=== PATIENT | female | born 1950 | race Caucasian/White ===

== ENCOUNTER 2018-02-07 11:39 | Inpatient (IN) ==
[2018-02-07 16:26] LABS: Basophils % 0.4 % (0.0-0.8); Eosinophils # 0.1 10*3/uL (0.0-0.87); Eosinophils % 1.2 % (0.00-10.9); Hematocrit 36.8 VOL% (35.7-47.0); Hemoglobin 11.9 GM/DL (12.0-16.0); Immature Granulocytes % 0.6 %; Immature Granulocytes Absolute 0.06 #; Lymphocytes # 1.6 10*3/uL (1.4-4.0); Lymphocytes % 16.1 % (21.3-54.2); Mean Corpuscular HGB Conc 32.3 GM/DL (32-36); Mean Corpuscular Hemoglobin 29 PG (27-34); Mean Corpuscular Volume 90.4 FL (87-102); Monocytes # 0.7 10*3/uL (0.11-0.8); Monocytes % 7.6 % (1.7-12.7); Neutrophils # 7.2 10*3/uL (1.4-7.4); Neutrophils % 74.1 % (38.7-73.9); Platelet Count 206 T/CUMM (130-400); Red Blood Count 4.07 MC/CUMM (3.8-5.5); Red Cell Distribution Width 13.1 % (9.3-17.3); White Blood Count 9.7 T/CUMM (4-12)
[2018-02-07] MEDS ORDERED: ONDANSETRON 4 MG/2 ML VIAL IV PRN (16:37)
[2018-02-07] MEDS ORDERED: DEXTROSE 50% 25 GM/50 ML VIAL IV PRN (16:37)
[2018-02-07] MEDS ORDERED: GLUCAGON 1 MG VIAL IM PRN (16:37)
[2018-02-07 16:46] LABS: Albumin 2.8 G/DL (3.4-5.0); Bilirubin,Total 0.4 MG/DL (0.2-1.0); Calcium 7.4 MG/DL (8.5-10.1); Osmolality,Calculated 287.3 MOS/KG (273-304); Potassium 3.5 MMOL/L (3.5-5.1); Total Protein 6.3 G/DL (6.4-8.3)
[2018-02-07 20:54] LABS: Apearance,Urine CLEAR (Clear); Bilirubin,Urine Negative (Negative); Blood, Urine Small mg/dL (Negative); Glucose,Urine (UA) >=500 mg/dL (Negative); Ketones,Urine Negative (Negative); Mucus,Urine Occasional /LPF (Occasional); Nitrite,Urine Negative (Negative); Protein,Urine Negative; RBC,Urine <1 /HPF (0-4); Squamous Epithelial Cell,Urine Occasional /HPF (0-10); Urine Color Yellow (Yellow); Urine Specific Gravity 1.015 (1.001-1.035); WBC,Urine 1 /HPF (0-6)
[2018-02-07] MEDS ORDERED: INSULIN GLARGINE 100 UNIT/ML SUBCUT SCH (21:00)
[2018-02-07] MEDS: INSULIN LISPRO 100 UNIT/ML SUBCUT SCH (22:12)
[2018-02-08] MEDS: ALBUTEROL/IPRATROPIUM 3 ML NEB RESP TX SCH ×4 (00:32→19:35)
[2018-02-08] MEDS: ACETAMINOPHEN 325 MG TABLET PO PRN ×2 (05:59→20:11)
[2018-02-08 06:09] LABS: Basophils % 0.2 % (0.0-0.8); Eosinophils % 0.1 % (0.00-10.9); Hematocrit 40.7 VOL% (35.7-47.0); Hemoglobin 12.5 GM/DL (12.0-16.0); Immature Granulocytes % 0.6 %; Immature Granulocytes Absolute 0.08 #; Lymphocytes # 0.7 10*3/uL (1.4-4.0); Lymphocytes % 5.2 % (21.3-54.2); Mean Corpuscular HGB Conc 30.7 GM/DL (32-36); Mean Corpuscular Hemoglobin 28 PG (27-34); Mean Corpuscular Volume 91.9 FL (87-102); Mean Platelet Volume 11.6 FL (9.6-12.0); Monocytes % 6.8 % (1.7-12.7); Neutrophils # 12.5 10*3/uL (1.4-7.4); Neutrophils % 87.1 % (38.7-73.9); Platelet Count 238 T/CUMM (130-400); Red Blood Count 4.43 MC/CUMM (3.8-5.5); Red Cell Distribution Width 13.3 % (9.3-17.3); White Blood Count 14.4 T/CUMM (4-12)
[2018-02-08 06:46] LABS: Calcium 7.8 MG/DL (8.5-10.1); Osmolality,Calculated 288.3 MOS/KG (273-304); Potassium 3.5 MMOL/L (3.5-5.1); Risk Ratio 2.8
[2018-02-08] MEDS: INSULIN LISPRO 100 UNIT/ML SUBCUT SCH ×7 (07:19→20:13)
[2018-02-08] MEDS ORDERED: DIAZEPAM 5 MG TABLET PO ONE (10:33)
[2018-02-08] MEDS: ASPIRIN EC 325 MG TABLET PO SCH (11:34)
[2018-02-08] MEDS: PANTOPRAZOLE 40 MG TABLET PO SCH (11:34)
[2018-02-08] MEDS ORDERED: INSULIN GLARGINE 100 UNIT/ML SUBCUT SCH (14:13)
[2018-02-08] MEDS: cefTRIAXone 2,000 MG in SYRINGE 1 EACH IV SCH (18:47)
[2018-02-08] MEDS: AZITHROMYCIN INJ 500 MG in SODIUM CHLORIDE 0.9% 250 ML IV SCH (19:35)
[2018-02-08] MEDS: ENOXAPARIN 40 MG/0.4 ML SYRINGE SUBCUT SCH (20:15)
[2018-02-08] MEDS ORDERED: ASPIRIN EC 325 MG TABLET PO ONE (20:47)
[2018-02-08] MEDS ORDERED: ALBUTEROL/IPRATROPIUM 3 ML NEB RESP TX SCH (23:26)
[2018-02-09 05:24] LABS: Basophils # 0.1 10*3/uL (0.0-0.2); Basophils % 0.4 % (0.0-0.8); Eosinophils % 0.2 % (0.00-10.9); Hematocrit 37.7 VOL% (35.7-47.0); Immature Granulocytes % 0.6 %; Immature Granulocytes Absolute 0.08 #; Lymphocytes # 1.6 10*3/uL (1.4-4.0); Lymphocytes % 11.8 % (21.3-54.2); Mean Corpuscular HGB Conc 31.8 GM/DL (32-36); Mean Corpuscular Hemoglobin 29 PG (27-34); Mean Corpuscular Volume 91.1 FL (87-102); Mean Platelet Volume 12.1 FL (9.6-12.0); Monocytes # 1.2 10*3/uL (0.11-0.8); Monocytes % 9.1 % (1.7-12.7); Neutrophils # 10.4 10*3/uL (1.4-7.4); Neutrophils % 77.9 % (38.7-73.9); Platelet Count 238 T/CUMM (130-400); Red Blood Count 4.14 MC/CUMM (3.8-5.5); Red Cell Distribution Width 13.5 % (9.3-17.3); White Blood Count 13.3 T/CUMM (4-12)
[2018-02-09 05:56] LABS: Osmolality,Calculated 280.4 MOS/KG (273-304); Potassium 2.8 MMOL/L (3.5-5.1)
[2018-02-09] MEDS: ALBUTEROL/IPRATROPIUM 3 ML NEB RESP TX SCH ×4 (08:18→19:19)
[2018-02-09] MEDS ORDERED: POTASSIUM CHLORIDE 20 MEQ TABLET PO SCH (09:00)
[2018-02-09] MEDS: metFORMIN 500 MG TABLET PO SCH ×2 (09:16→20:01)
[2018-02-09] MEDS: FUROSEMIDE 40 MG/4 ML VIAL IV SCH (09:18)
[2018-02-09] MEDS: ASPIRIN EC 325 MG TABLET PO SCH (09:18)
[2018-02-09] MEDS: INSULIN LISPRO 100 UNIT/ML SUBCUT SCH ×7 (09:18→21:49)
[2018-02-09] MEDS: PANTOPRAZOLE 40 MG TABLET PO SCH (09:18)
[2018-02-09] MEDS: LISINOPRIL 5 MG TABLET PO SCH (09:20)
[2018-02-09] MEDS: PRAVASTATIN 40 MG TABLET PO SCH (09:20)
[2018-02-09] MEDS: cefTRIAXone 2,000 MG in SYRINGE 1 EACH IV SCH (20:01)
[2018-02-09] MEDS: POTASSIUM CHLORIDE RIDER 10 MEQ in PREMIX 1 EACH IV SCH ×3 (20:04→22:54)
[2018-02-09] MEDS: INSULIN GLARGINE 100 UNIT/ML SUBCUT SCH (21:47)
[2018-02-09] MEDS: ENOXAPARIN 40 MG/0.4 ML SYRINGE SUBCUT SCH (21:47)
[2018-02-09] MEDS: POTASSIUM CHLORIDE 20 MEQ TABLET PO SCH (21:48)
[2018-02-10] MEDS: ALBUTEROL/IPRATROPIUM 3 ML NEB RESP TX SCH ×4 (00:09→19:20)
[2018-02-10] MEDS: AZITHROMYCIN INJ 500 MG in SODIUM CHLORIDE 0.9% 250 ML IV SCH ×2 (00:11→21:30)
[2018-02-10 05:43] LABS: Basophils # 0.1 10*3/uL (0.0-0.2); Basophils % 0.5 % (0.0-0.8); Eosinophils # 0.2 10*3/uL (0.0-0.87); Eosinophils % 1.6 % (0.00-10.9); Immature Granulocytes % 0.7 %; Immature Granulocytes Absolute 0.08 #; Lymphocytes # 1.4 10*3/uL (1.4-4.0); Lymphocytes % 11.4 % (21.3-54.2); Mean Corpuscular HGB Conc 31.4 GM/DL (32-36); Mean Corpuscular Hemoglobin 28 PG (27-34); Mean Corpuscular Volume 90.2 FL (87-102); Monocytes # 1.3 10*3/uL (0.11-0.8); Monocytes % 10.3 % (1.7-12.7); Neutrophils # 9.2 10*3/uL (1.4-7.4); Neutrophils % 75.5 % (38.7-73.9); Platelet Count 213 T/CUMM (130-400); Red Blood Count 3.88 MC/CUMM (3.8-5.5); Red Cell Distribution Width 13.7 % (9.3-17.3); White Blood Count 12.2 T/CUMM (4-12)
[2018-02-10 05:58] LABS: Osmolality,Calculated 280.3 MOS/KG (273-304); Potassium 3.4 MMOL/L (3.5-5.1)
[2018-02-10] MEDS: metFORMIN 500 MG TABLET PO SCH ×2 (09:04→18:33)
[2018-02-10] MEDS: LISINOPRIL 5 MG TABLET PO SCH (09:05)
[2018-02-10] MEDS: PANTOPRAZOLE 40 MG TABLET PO SCH (09:05)
[2018-02-10] MEDS: POTASSIUM CHLORIDE 20 MEQ TABLET PO SCH ×2 (09:05→21:23)
[2018-02-10] MEDS: INSULIN LISPRO 100 UNIT/ML SUBCUT SCH ×7 (09:06→21:28)
[2018-02-10] MEDS: FUROSEMIDE 40 MG/4 ML VIAL IV SCH (09:07)
[2018-02-10] MEDS: ASPIRIN EC 325 MG TABLET PO SCH (09:09)
[2018-02-10] MEDS: PRAVASTATIN 40 MG TABLET PO SCH (09:09)
[2018-02-10] MEDS: ACETAMINOPHEN 325 MG TABLET PO PRN (12:10)
[2018-02-10] MEDS: MEROPENEM 1,000 MG in SODIUM CHLORIDE 0.9% 100 ML IV SCH ×2 (12:11→18:34)
[2018-02-10] MEDS: ENOXAPARIN 40 MG/0.4 ML SYRINGE SUBCUT SCH (21:23)
[2018-02-10] MEDS: INSULIN GLARGINE 100 UNIT/ML SUBCUT SCH (21:29)
[2018-02-11] MEDS: ALBUTEROL/IPRATROPIUM 3 ML NEB RESP TX SCH ×4 (01:03→19:03)
[2018-02-11] MEDS: MEROPENEM 1,000 MG in SODIUM CHLORIDE 0.9% 100 ML IV SCH ×3 (01:31→17:28)
[2018-02-11 04:48] LABS: Basophils % 0.4 % (0.0-0.8); Eosinophils # 0.4 10*3/uL (0.0-0.87); Eosinophils % 3.4 % (0.00-10.9); Hematocrit 38.4 VOL% (35.7-47.0); Hemoglobin 11.7 GM/DL (12.0-16.0); Immature Granulocytes % 0.6 %; Immature Granulocytes Absolute 0.06 #; Lymphocytes # 1.3 10*3/uL (1.4-4.0); Mean Corpuscular HGB Conc 30.5 GM/DL (32-36); Mean Corpuscular Hemoglobin 28 PG (27-34); Mean Corpuscular Volume 92.5 FL (87-102); Mean Platelet Volume 11.8 FL (9.6-12.0); Monocytes # 0.8 10*3/uL (0.11-0.8); Monocytes % 7.4 % (1.7-12.7); Neutrophils % 76.2 % (38.7-73.9); Platelet Count 241 T/CUMM (130-400); Red Blood Count 4.15 MC/CUMM (3.8-5.5); White Blood Count 10.5 T/CUMM (4-12)
[2018-02-11 05:12] LABS: Calcium 8.2 MG/DL (8.5-10.1); Ferritin 157.6 ng/ml (8-252); Osmolality,Calculated 283.3 MOS/KG (273-304); Potassium 4.2 MMOL/L (3.5-5.1)
[2018-02-11 05:18] LABS: Free T4 (Free Thyroxine) 1.38 NG/DL (0.76-1.46); Thyroid Stimulating Hormone 1.33 uIU/ml (0.358-3.74)
[2018-02-11 05:28] LABS: Folate 8.3 NG/ML (5.4-24.0); Vitamin B12 260 PG/ML (211-911)
[2018-02-11] MEDS: ACETAMINOPHEN 325 MG TABLET PO PRN ×2 (06:05→12:42)
[2018-02-11 06:38] LABS: Sedimentation Rate-Westergren 72 MM/HR (0-30)
[2018-02-11] MEDS: INSULIN LISPRO 100 UNIT/ML SUBCUT SCH ×7 (09:15→21:00)
[2018-02-11] MEDS: PRAVASTATIN 40 MG TABLET PO SCH (09:23)
[2018-02-11] MEDS: ASPIRIN EC 325 MG TABLET PO SCH (09:23)
[2018-02-11] MEDS: POTASSIUM CHLORIDE 20 MEQ TABLET PO SCH ×2 (09:23→21:29)
[2018-02-11] MEDS: PANTOPRAZOLE 40 MG TABLET PO SCH (09:23)
[2018-02-11] MEDS: LISINOPRIL 5 MG TABLET PO SCH (09:24)
[2018-02-11] MEDS: FUROSEMIDE 40 MG/4 ML VIAL IV SCH (09:40)
[2018-02-11] MEDS ORDERED: ERGOCALCIFEROL 50,000 UNIT CAPSULE PO SCH (10:30)
[2018-02-11] MEDS ORDERED: CYANOCOBALAMIN 1000 MCG/1 ML VIAL IM SCH (10:30)
[2018-02-11 10:45] LABS: Hemoglobin A1 (Alkaline) 97.6 % (96.5-98.5); Hemoglobin A2 (Alkaline) 2.4 % (1.5-3.5)
[2018-02-11 12:40] LABS: ABG Base Excess 2.2 MMOL/L (-2.5-2.5); ABG HCO3 26.3 MMOL/L (20-26); ABG Oxygen Saturation 99.4 % (95-100); ABG PCO2 39.4 MM HG (35-48); ABG PH 7.435 (7.35-7.45); Allen Test Positive
[2018-02-11] MEDS: CHOLECALCIFEROL 1,000 UNIT TABLET PO SCH (12:42)
[2018-02-11] MEDS: FOLIC ACID 1 MG TABLET PO SCH (12:43)
[2018-02-11] MEDS: ENOXAPARIN 40 MG/0.4 ML SYRINGE SUBCUT SCH (21:29)
[2018-02-11] MEDS: INSULIN GLARGINE 100 UNIT/ML SUBCUT SCH (21:29)
[2018-02-11] MEDS: AZITHROMYCIN INJ 500 MG in SODIUM CHLORIDE 0.9% 250 ML IV SCH (21:35)
[2018-02-12] MEDS: ALBUTEROL/IPRATROPIUM 3 ML NEB RESP TX SCH ×4 (01:27→19:55)
[2018-02-12] MEDS: MEROPENEM 1,000 MG in SODIUM CHLORIDE 0.9% 100 ML IV SCH ×3 (01:47→17:27)
[2018-02-12 05:16] LABS: Basophils # 0.1 10*3/uL (0.0-0.2); Basophils % 0.5 % (0.0-0.8); Eosinophils # 0.5 10*3/uL (0.0-0.87); Eosinophils % 5.2 % (0.00-10.9); Hematocrit 35.8 VOL% (35.7-47.0); Hemoglobin 11.2 GM/DL (12.0-16.0); Immature Granulocytes % 0.4 %; Immature Granulocytes Absolute 0.04 #; Lymphocytes # 1.1 10*3/uL (1.4-4.0); Lymphocytes % 10.9 % (21.3-54.2); Mean Corpuscular HGB Conc 31.3 GM/DL (32-36); Mean Corpuscular Hemoglobin 28 PG (27-34); Mean Corpuscular Volume 90.6 FL (87-102); Mean Platelet Volume 11.7 FL (9.6-12.0); Monocytes # 0.9 10*3/uL (0.11-0.8); Monocytes % 8.3 % (1.7-12.7); Neutrophils # 7.6 10*3/uL (1.4-7.4); Neutrophils % 74.7 % (38.7-73.9); Platelet Count 249 T/CUMM (130-400); Red Blood Count 3.95 MC/CUMM (3.8-5.5); White Blood Count 10.2 T/CUMM (4-12)
[2018-02-12 05:47] LABS: Calcium 8.8 MG/DL (8.5-10.1); Osmolality,Calculated 286.4 MOS/KG (273-304); Potassium 4.7 MMOL/L (3.5-5.1)
[2018-02-12] MEDS: ACETAMINOPHEN 325 MG TABLET PO PRN ×3 (06:30→18:14)
[2018-02-12] MEDS: ASPIRIN EC 325 MG TABLET PO SCH (09:07)
[2018-02-12] MEDS: PANTOPRAZOLE 40 MG TABLET PO SCH (09:07)
[2018-02-12] MEDS: FOLIC ACID 1 MG TABLET PO SCH (09:07)
[2018-02-12] MEDS: CHOLECALCIFEROL 1,000 UNIT TABLET PO SCH (09:07)
[2018-02-12] MEDS: POTASSIUM CHLORIDE 20 MEQ TABLET PO SCH (09:07)
[2018-02-12] MEDS: LISINOPRIL 5 MG TABLET PO SCH (09:08)
[2018-02-12] MEDS: INSULIN LISPRO 100 UNIT/ML SUBCUT SCH ×7 (09:08→20:35)
[2018-02-12] MEDS: FUROSEMIDE 40 MG/4 ML VIAL IV SCH (09:08)
[2018-02-12] MEDS: PRAVASTATIN 40 MG TABLET PO SCH (09:08)
[2018-02-12] MEDS: INSULIN GLARGINE 100 UNIT/ML SUBCUT SCH (20:35)
[2018-02-12] MEDS: ENOXAPARIN 40 MG/0.4 ML SYRINGE SUBCUT SCH (20:35)
[2018-02-12] MEDS: AZITHROMYCIN INJ 500 MG in SODIUM CHLORIDE 0.9% 250 ML IV SCH (20:38)
[2018-02-13] MEDS: ALBUTEROL/IPRATROPIUM 3 ML NEB RESP TX SCH ×4 (01:11→20:04)
[2018-02-13] MEDS: MEROPENEM 1,000 MG in SODIUM CHLORIDE 0.9% 100 ML IV SCH ×3 (01:58→17:26)
[2018-02-13] MEDS: ACETAMINOPHEN 325 MG TABLET PO PRN ×2 (02:01→21:50)
[2018-02-13] MEDS: PRAVASTATIN 40 MG TABLET PO SCH (08:28)
[2018-02-13] MEDS: PANTOPRAZOLE 40 MG TABLET PO SCH (08:28)
[2018-02-13] MEDS: CHOLECALCIFEROL 1,000 UNIT TABLET PO SCH (08:28)
[2018-02-13] MEDS: FUROSEMIDE 20 MG TABLET PO SCH (08:29)
[2018-02-13] MEDS: FOLIC ACID 1 MG TABLET PO SCH (08:29)
[2018-02-13] MEDS: LISINOPRIL 5 MG TABLET PO SCH (08:29)
[2018-02-13] MEDS: POTASSIUM CHLORIDE 20 MEQ TABLET PO SCH (08:30)
[2018-02-13] MEDS: ASPIRIN EC 325 MG TABLET PO SCH (08:30)
[2018-02-13] MEDS: INSULIN LISPRO 100 UNIT/ML SUBCUT SCH ×7 (08:31→20:48)
[2018-02-13] MEDS ORDERED: INSULIN GLARGINE 100 UNIT/ML SUBCUT SCH (15:40)
[2018-02-13] MEDS: AZITHROMYCIN INJ 500 MG in SODIUM CHLORIDE 0.9% 250 ML IV SCH (20:46)
[2018-02-13] MEDS: ENOXAPARIN 40 MG/0.4 ML SYRINGE SUBCUT SCH (20:48)
[2018-02-14] MEDS: ALBUTEROL/IPRATROPIUM 3 ML NEB RESP TX SCH ×2 (00:28→07:36)
[2018-02-14] MEDS: MEROPENEM 1,000 MG in SODIUM CHLORIDE 0.9% 100 ML IV SCH ×2 (02:03→09:25)
[2018-02-14 05:30] LABS: Calcium 9.1 MG/DL (8.5-10.1); Osmolality,Calculated 278.5 MOS/KG (273-304); Potassium 4.3 MMOL/L (3.5-5.1)
[2018-02-14 08:12] VITALS: BP 109/62
[2018-02-14] MEDS: POTASSIUM CHLORIDE 20 MEQ TABLET PO SCH (09:22)
[2018-02-14] MEDS: ASPIRIN EC 325 MG TABLET PO SCH (09:22)
[2018-02-14] MEDS: LISINOPRIL 5 MG TABLET PO SCH (09:22)
[2018-02-14] MEDS: CHOLECALCIFEROL 1,000 UNIT TABLET PO SCH (09:22)
[2018-02-14] MEDS: metFORMIN 500 MG TABLET PO SCH (09:23)
[2018-02-14] MEDS: FUROSEMIDE 20 MG TABLET PO SCH (09:23)
[2018-02-14] MEDS: PANTOPRAZOLE 40 MG TABLET PO SCH (09:23)
[2018-02-14] MEDS: FOLIC ACID 1 MG TABLET PO SCH (09:23)
[2018-02-14] MEDS: INSULIN LISPRO 100 UNIT/ML SUBCUT SCH ×2 (09:23→09:24)
[2018-02-14] MEDS: PRAVASTATIN 40 MG TABLET PO SCH (09:23)
== END 2018-02-14 11:20 | disposition swing bed (61) | DRG 64 ==
LOC: SUATTDRO 15:02 → N.4E 15:02
PROVIDERS: ADMIT Internal Medicine; ATTEND Hospitalist

== ENCOUNTER 2020-07-15 09:08 | Inpatient (IN) ==
[2020-07-15] MEDS ORDERED: ALBUTEROL 2.5 MG/3 ML NEB RESP TX PRN (10:55)
[2020-07-15] MEDS ORDERED: ONDANSETRON 4 MG/2 ML VIAL IV PRN (10:55)
[2020-07-15] MEDS ORDERED: ENOXAPARIN 30 MG/0.3 ML SYRINGE SUBCUT SCH (11:00)
[2020-07-15] MEDS ORDERED: LACTATED RINGERS 500 ML IV ONE ×2 (11:04→13:44)
[2020-07-15] MEDS: PHENYLEPHRINE DRIP 40 MG/250 ML PREMIX IV PRN (11:14)
[2020-07-15] MEDS ORDERED: GLUCAGON 1 MG VIAL IM PRN ×2 (11:15→13:52)
[2020-07-15] MEDS ORDERED: DEXTROSE 50% 25 GM/50 ML VIAL IV PRN ×2 (11:15→13:52)
[2020-07-15] MEDS: LEVOFLOXACIN INJ 500 MG in PREMIX 1 EACH IV SCH (11:30)
[2020-07-15 11:49] LABS: Hematocrit 35.9 VOL% (35.7-47.0); Immature Granulocytes % 1.7 %; Immature Granulocytes Absolute 0.12 #; Lactic Acid 2.1 MMOL/L (0.4-2.0); Lymphocytes # 0.4 10*3/uL (1.4-4.0); Lymphocytes % 6.2 % (21.3-54.2); Mean Corpuscular HGB Conc 27.9 GM/DL (32-36); Mean Corpuscular Volume 96.5 FL (87-102); Mean Platelet Volume 11.4 FL (9.6-12.0); Monocytes % 4.7 % (1.7-12.7); NRBC # 0.03 10*3/uL; Neutrophils % 87.4 % (38.7-73.9); Platelet Count 261 T/CUMM (130-400); Red Blood Count 3.72 MC/CUMM (3.8-5.5); Red Cell Distribution Width 16.2 % (9.3-17.3)
[2020-07-15 11:49] LABS: ABG HCO3 30.9 MMOL/L (20-26); ABG PCO2 50.8 MM HG (35-48); ABG PH 7.417 (7.35-7.45); ABG TCO2 29.8 MMOL/L (23-27); Pt O2 Delivery Device Ventilator
[2020-07-15 11:55] LABS: Alanine Aminotransferase 9 U/L (13-56); Albumin 2.7 G/DL (3.4-5.0); Alkaline Phosphatase 95 U/L (45-117); Aspartate Amino Transferase 19 U/L (0-37); Blood Urea Nitrogen 33 MG/DL (7-18); Calcium 8.5 MG/DL (8.5-10.1); Carbon Dioxide 33 MMOL/L (21-32); Estimated Glom Filtration Rate 44 ML/MIN; Glucose 230 MG/DL (74-106); Osmolality,Calculated 271.9 MOS/KG (273-304); Potassium 4.6 MMOL/L (3.5-5.1); Sodium 129 MMOL/L (136-145); Total Protein 8.3 G/DL (6.4-8.2)
[2020-07-15] MEDS: LACTATED RINGERS 1,000 ML IV SCH ×2 (12:03→20:22)
[2020-07-15] MEDS: PANTOPRAZOLE 40 MG VIAL IV SCH (12:13)
[2020-07-15] MEDS: MEROPENEM 500 MG in SODIUM CHLORIDE 0.9% 100 ML IV SCH ×3 (12:13→22:41)
[2020-07-15 12:53] LABS: Bacteria,Urine Moderate /HPF (Few); Bilirubin,Urine Negative (Negative); Blood, Urine Large mg/dL (Negative); Glucose,Urine (UA) Negative (Negative); Hyaline Casts,Urine 57 /LPF (0-3); Ketones,Urine Negative (Negative); Mucus,Urine Occasional /LPF (Occasional); Nitrite,Urine Negative (Negative); Protein,Urine 100 MG/DL; RBC,Urine 219 /HPF (0-4); Squamous Epithelial Cell,Urine Occasional /HPF (0-10); Urine Appearance CLOUDY (Clear); Urine Color Amber (Yellow); Urine Specific Gravity 1.019 (1.001-1.035); WBC,Urine 204 /HPF (0-6)
[2020-07-15] MEDS: INSULIN LISPRO 100 UNIT/ML SUBCUT SCH ×3 (13:06→23:38)
[2020-07-15] MEDS: MIDAZOLAM 100 MG in SODIUM CHLORIDE 0.9% 80 ML IV PRN (15:18)
[2020-07-16 03:21] LABS: ABG Base Excess 9.4 MMOL/L (-2.5-2.5); ABG HCO3 32.5 MMOL/L (20-26); ABG Oxygen Saturation 97.7 % (95-100); ABG PCO2 38.1 MM HG (35-48); ABG PH 7.549 (7.35-7.45); ABG PO2 88.9 MM HG (80-95); ABG TCO2 33.7 MMOL/L (23-27)
[2020-07-16 05:38] LABS: Basophils % 0.1 % (0.0-0.8); Hematocrit 33.9 VOL% (35.7-47.0); Hemoglobin 10.2 GM/DL (12.0-16.0); Immature Granulocytes % 0.9 %; Immature Granulocytes Absolute 0.07 #; Lymphocytes # 0.3 10*3/uL (1.4-4.0); Lymphocytes % 4.1 % (21.3-54.2); Mean Corpuscular HGB Conc 30.1 GM/DL (32-36); Mean Corpuscular Volume 89.2 FL (87-102); Mean Platelet Volume 11.6 FL (9.6-12.0); Monocytes % 12.2 % (1.7-12.7); NRBC # 0.03 10*3/uL; Neutrophils % 82.7 % (38.7-73.9); Platelet Count 254 T/CUMM (130-400); Red Cell Distribution Width 16.9 % (9.3-17.3); White Blood Count 7.6 T/CUMM (4-12)
[2020-07-16] MEDS: INSULIN LISPRO 100 UNIT/ML SUBCUT SCH ×3 (05:50→18:04)
[2020-07-16] MEDS: MEROPENEM 500 MG in SODIUM CHLORIDE 0.9% 100 ML IV SCH ×3 (05:50→18:10)
[2020-07-16 06:04] LABS: Albumin 2.5 G/DL (3.4-5.0); Bilirubin,Total 1.7 MG/DL (0.2-1.0); Calcium 8.6 MG/DL (8.5-10.1); Osmolality,Calculated 284.5 MOS/KG (273-304); Total Protein 7.5 G/DL (6.4-8.2)
[2020-07-16 06:34] LABS: Lymphocytes 2 % (20-55); Segmented Neutrophils 94 % (50-85); Total Cells Counted 100
[2020-07-16 06:35] LABS: Hypochromasia Slight; Platelet Estimate Normal; Polychromasia Slight
[2020-07-16] MEDS: LACTATED RINGERS 1,000 ML IV SCH (08:08)
[2020-07-16] MEDS: MIDAZOLAM 100 MG in SODIUM CHLORIDE 0.9% 80 ML IV PRN (08:50)
[2020-07-16] MEDS ORDERED: ENOXAPARIN 40 MG/0.4 ML SYRINGE SUBCUT SCH (11:00)
[2020-07-16] MEDS: PANTOPRAZOLE 40 MG VIAL IV SCH (12:55)
[2020-07-16] MEDS: INSULIN GLARGINE 100 UNIT/ML SUBCUT SCH (12:57)
[2020-07-16] MEDS: LEVOFLOXACIN INJ 500 MG in PREMIX 1 EACH IV SCH (12:57)
[2020-07-16] MEDS: PHENYLEPHRINE DRIP 40 MG/250 ML PREMIX IV PRN (13:00)
[2020-07-17] MEDS: INSULIN LISPRO 100 UNIT/ML SUBCUT SCH ×4 (00:10→18:15)
[2020-07-17] MEDS: MEROPENEM 500 MG in SODIUM CHLORIDE 0.9% 100 ML IV SCH ×4 (00:10→20:51)
[2020-07-17] MEDS: LACTATED RINGERS 1,000 ML IV SCH ×4 (00:11→22:01)
[2020-07-17] MEDS: MIDAZOLAM 100 MG in SODIUM CHLORIDE 0.9% 80 ML IV PRN (01:08)
[2020-07-17 03:50] LABS: ABG Base Excess 11.2 MMOL/L (-2.5-2.5); ABG HCO3 34.5 MMOL/L (20-26); ABG Oxygen Saturation 98.7 % (95-100); ABG PH 7.553 (7.35-7.45); ABG PO2 124.5 MM HG (80-95); ABG TCO2 35.7 MMOL/L (23-27)
[2020-07-17 04:20] LABS: Hematocrit 28.5 VOL% (35.7-47.0); Immature Granulocytes % 0.4 %; Immature Granulocytes Absolute 0.04 #; Lymphocytes # 0.6 10*3/uL (1.4-4.0); Lymphocytes % 5.8 % (21.3-54.2); Mean Corpuscular HGB Conc 31.6 GM/DL (32-36); Mean Corpuscular Volume 86.9 FL (87-102); Mean Platelet Volume 11.2 FL (9.6-12.0); Monocytes % 16.3 % (1.7-12.7); Neutrophils % 77.5 % (38.7-73.9); Platelet Count 217 T/CUMM (130-400); Red Blood Count 3.28 MC/CUMM (3.8-5.5); Red Cell Distribution Width 17.7 % (9.3-17.3); White Blood Count 9.8 T/CUMM (4-12)
[2020-07-17 04:38] LABS: Albumin 2.2 G/DL (3.4-5.0); Calcium 8.2 MG/DL (8.5-10.1); Osmolality,Calculated 295.2 MOS/KG (273-304); Potassium 4.2 MMOL/L (3.5-5.1); Total Protein 6.7 G/DL (6.4-8.2)
[2020-07-17 05:15] LABS: Lymphocytes 10 % (20-55); Segmented Neutrophils 76 % (50-85); Total Cells Counted 100
[2020-07-17 05:16] LABS: Hypochromasia 2+; Macrocytosis 1+; Platelet Estimate Normal
[2020-07-17 05:17] LABS: Anisocytosis 1+; Polychromasia Few
[2020-07-17] MEDS ORDERED: FUROSEMIDE 20 MG/2 ML VIAL IV ONE (08:15)
[2020-07-17] MEDS ORDERED: FUROSEMIDE 40 MG/4 ML VIAL IV ONE (08:56)
[2020-07-17] MEDS: INSULIN GLARGINE 100 UNIT/ML SUBCUT SCH (08:57)
[2020-07-17] MEDS ORDERED: INSULIN GLARGINE 100 UNIT/ML SUBCUT ONE (10:59)
[2020-07-17 11:44] LABS: ABG HCO3 34.8 MMOL/L (20-26); ABG Oxygen Saturation 99.4 % (95-100); ABG PH 7.413 (7.35-7.45); ABG TCO2 34.3 MMOL/L (23-27)
[2020-07-17] MEDS: PANTOPRAZOLE 40 MG VIAL IV SCH (12:16)
[2020-07-17] MEDS: ENOXAPARIN 30 MG/0.3 ML SYRINGE SUBCUT SCH (12:26)
[2020-07-17] MEDS: LEVOFLOXACIN INJ 500 MG in PREMIX 1 EACH IV SCH (12:29)
[2020-07-17] MEDS: MORPHINE 4 MG/1 ML VIAL IV PRN (20:52)
[2020-07-18] MEDS: INSULIN LISPRO 100 UNIT/ML SUBCUT SCH ×7 (00:22→23:55)
[2020-07-18 04:15] LABS: ABG Base Excess 10.5 MMOL/L (-2.5-2.5); ABG HCO3 33.7 MMOL/L (20-26); ABG Oxygen Saturation 98.8 % (95-100); ABG PH 7.554 (7.35-7.45); ABG PO2 137.2 MM HG (80-95); ABG TCO2 34.9 MMOL/L (23-27)
[2020-07-18] MEDS: MEROPENEM 500 MG in SODIUM CHLORIDE 0.9% 100 ML IV SCH (04:34)
[2020-07-18 04:58] LABS: Basophils % 0.1 % (0.0-0.8); Eosinophils # 0.1 10*3/uL (0.0-0.87); Eosinophils % 0.5 % (0.00-10.9); Hematocrit 29.7 VOL% (35.7-47.0); Hemoglobin 9.3 GM/DL (12.0-16.0); Immature Granulocytes % 0.5 %; Immature Granulocytes Absolute 0.07 #; Lymphocytes # 0.8 10*3/uL (1.4-4.0); Lymphocytes % 6.2 % (21.3-54.2); Mean Corpuscular HGB Conc 31.3 GM/DL (32-36); Mean Corpuscular Volume 86.8 FL (87-102); Mean Platelet Volume 11.7 FL (9.6-12.0); Monocytes % 13.9 % (1.7-12.7); Neutrophils % 78.8 % (38.7-73.9); Platelet Count 215 T/CUMM (130-400); Red Blood Count 3.42 MC/CUMM (3.8-5.5); Red Cell Distribution Width 18.1 % (9.3-17.3); White Blood Count 12.8 T/CUMM (4-12)
[2020-07-18 05:30] LABS: Calcium 8.3 MG/DL (8.5-10.1); Osmolality,Calculated 300.8 MOS/KG (273-304); Potassium 3.9 MMOL/L (3.5-5.1)
[2020-07-18] MEDS: MORPHINE 4 MG/1 ML VIAL IV PRN (08:19)
[2020-07-18] MEDS ORDERED: INSULIN GLARGINE 100 UNIT/ML SUBCUT ONE (09:00)
[2020-07-18] MEDS ORDERED: INSULIN GLARGINE 100 UNIT/ML SUBCUT SCH (09:00)
[2020-07-18] MEDS ORDERED: INSULIN LISPRO 100 UNIT/ML ONE (09:17)
[2020-07-18] MEDS: FUROSEMIDE 40 MG/4 ML VIAL IV SCH ×2 (09:19→20:54)
[2020-07-18] MEDS: PANTOPRAZOLE 40 MG VIAL IV SCH (11:11)
[2020-07-18] MEDS: LEVOFLOXACIN INJ 500 MG in PREMIX 1 EACH IV SCH (11:16)
[2020-07-18] MEDS: ENOXAPARIN 30 MG/0.3 ML SYRINGE SUBCUT SCH (11:17)
[2020-07-18] MEDS: DEXMEDETOMIDINE 200 MCG in SODIUM CHLORIDE 0.9% 48 ML IV PRN ×2 (11:33→16:33)
[2020-07-18] MEDS: AMITRIPTYLINE 25 MG TABLET PO SCH (20:56)
[2020-07-19] MEDS: DEXMEDETOMIDINE 200 MCG in SODIUM CHLORIDE 0.9% 48 ML IV PRN (02:29)
[2020-07-19 04:05] LABS: ABG Base Excess 14.4 MMOL/L (-2.5-2.5); ABG HCO3 38.3 MMOL/L (20-26); ABG Oxygen Saturation 99.7 % (95-100); ABG PCO2 39.8 MM HG (35-48); ABG PH 7.586 (7.35-7.45); ABG TCO2 34.3 MMOL/L (23-27); Allen Test Positive; Pt O2 Delivery Device Ventilator
[2020-07-19] MEDS: INSULIN LISPRO 100 UNIT/ML SUBCUT SCH ×5 (05:07→20:50)
[2020-07-19 06:46] LABS: Basophils % 0.1 % (0.0-0.8); Eosinophils # 0.4 10*3/uL (0.0-0.87); Eosinophils % 2.2 % (0.00-10.9); Hematocrit 31.4 VOL% (35.7-47.0); Hemoglobin 9.7 GM/DL (12.0-16.0); Immature Granulocytes % 0.7 %; Immature Granulocytes Absolute 0.11 #; Lymphocytes # 0.7 10*3/uL (1.4-4.0); Mean Corpuscular HGB Conc 30.9 GM/DL (32-36); Mean Platelet Volume 11.3 FL (9.6-12.0); Monocytes % 9.9 % (1.7-12.7); Neutrophils % 83.1 % (38.7-73.9); Platelet Count 200 T/CUMM (130-400); Red Blood Count 3.57 MC/CUMM (3.8-5.5); Red Cell Distribution Width 18.2 % (9.3-17.3); White Blood Count 16.6 T/CUMM (4-12)
[2020-07-19 07:05] LABS: Calcium 8.6 MG/DL (8.5-10.1); Osmolality,Calculated 301.4 MOS/KG (273-304); Potassium 4.3 MMOL/L (3.5-5.1)
[2020-07-19 07:06] LABS: Eosinophils 1 % (0-10); Lymphocytes 1 % (20-55); Segmented Neutrophils 90 % (50-85); Total Cells Counted 100
[2020-07-19 07:07] LABS: Hypochromasia 1+; Microcytosis 1+; Platelet Estimate Adequate
[2020-07-19] MEDS: INSULIN GLARGINE 100 UNIT/ML SUBCUT SCH (08:15)
[2020-07-19] MEDS: MORPHINE 4 MG/1 ML VIAL IV PRN ×2 (08:15→22:39)
[2020-07-19] MEDS: FUROSEMIDE 40 MG/4 ML VIAL IV SCH ×2 (08:59→20:50)
[2020-07-19] MEDS: PANTOPRAZOLE 40 MG VIAL IV SCH (11:47)
[2020-07-19] MEDS: ENOXAPARIN 30 MG/0.3 ML SYRINGE SUBCUT SCH (11:47)
[2020-07-19] MEDS: LEVOFLOXACIN INJ 500 MG in PREMIX 1 EACH IV SCH (11:51)
[2020-07-19] MEDS: AMITRIPTYLINE 25 MG TABLET PO SCH (20:52)
[2020-07-20] MEDS: INSULIN LISPRO 100 UNIT/ML SUBCUT SCH ×6 (00:13→21:10)
[2020-07-20 04:10] LABS: ABG Base Excess 13.1 MMOL/L (-2.5-2.5); ABG HCO3 37.9 MMOL/L (20-26); ABG Oxygen Saturation 98.7 % (95-100); ABG PCO2 49.6 MM HG (35-48); ABG PH 7.501 (7.35-7.45); ABG PO2 119.9 MM HG (80-95); ABG TCO2 39.4 MMOL/L (23-27)
[2020-07-20 04:24] LABS: Basophils % 0.1 % (0.0-0.8); Eosinophils # 0.6 10*3/uL (0.0-0.87); Eosinophils % 3.1 % (0.00-10.9); Immature Granulocytes % 0.7 %; Immature Granulocytes Absolute 0.14 #; Lymphocytes # 0.8 10*3/uL (1.4-4.0); Lymphocytes % 4.1 % (21.3-54.2); Mean Platelet Volume 12.4 FL (9.6-12.0); Monocytes % 12.1 % (1.7-12.7); Neutrophils % 79.9 % (38.7-73.9); Platelet Count 205 T/CUMM (130-400); Red Blood Count 3.37 MC/CUMM (3.8-5.5); White Blood Count 20.2 T/CUMM (4-12)
[2020-07-20 04:42] LABS: Eosinophils 3 % (0-10); Hypochromasia 1+; Lymphocytes 3 % (20-55); Microcytosis Slight; Platelet Estimate Adequate; Segmented Neutrophils 83 % (50-85); Total Cells Counted 100
[2020-07-20 04:57] LABS: Calcium 8.5 MG/DL (8.5-10.1); Osmolality,Calculated 300.4 MOS/KG (273-304); Potassium 3.9 MMOL/L (3.5-5.1)
[2020-07-20] MEDS: INSULIN GLARGINE 100 UNIT/ML SUBCUT SCH (08:07)
[2020-07-20] MEDS: FUROSEMIDE 40 MG/4 ML VIAL IV SCH ×2 (08:07→21:08)
[2020-07-20] MEDS: PIPERACILLIN/TAZOBACTAM 3,375 MG in SODIUM CHLORIDE 0.9% 100 ML IV SCH ×2 (10:00→17:09)
[2020-07-20] MEDS: ENOXAPARIN 30 MG/0.3 ML SYRINGE SUBCUT SCH (12:08)
[2020-07-20] MEDS: PANTOPRAZOLE 40 MG VIAL IV SCH (12:08)
[2020-07-20] MEDS: VANCOMYCIN INJ 2,000 MG in SODIUM CHLORIDE 0.9% 500 ML IV SCH ×2 (12:14→21:11)
[2020-07-20 13:52] LABS: Bilirubin,Urine Negative (Negative); Blood, Urine Moderate mg/dL (Negative); Glucose,Urine (UA) Negative (Negative); Ketones,Urine Negative (Negative); Mucus,Urine Occasional /LPF (Occasional); Nitrite,Urine Negative (Negative); Protein,Urine Negative; RBC,Urine 63 /HPF (0-4); Squamous Epithelial Cell,Urine Occasional /HPF (0-10); Urine Appearance CLEAR (Clear); Urine Color Yellow (Yellow); WBC,Urine 22 /HPF (0-6)
[2020-07-20] MEDS: AMITRIPTYLINE 25 MG TABLET PO SCH (21:11)
[2020-07-21] MEDS: INSULIN LISPRO 100 UNIT/ML SUBCUT SCH ×6 (00:25→20:00)
[2020-07-21] MEDS: PIPERACILLIN/TAZOBACTAM 3,375 MG in SODIUM CHLORIDE 0.9% 100 ML IV SCH ×3 (00:45→17:17)
[2020-07-21 02:59] LABS: Basophils % 0.1 % (0.0-0.8); Eosinophils # 0.8 10*3/uL (0.0-0.87); Eosinophils % 5.2 % (0.00-10.9); Hematocrit 27.8 VOL% (35.7-47.0); Immature Granulocytes % 0.4 %; Immature Granulocytes Absolute 0.07 #; Lymphocytes # 0.8 10*3/uL (1.4-4.0); Lymphocytes % 5.1 % (21.3-54.2); Mean Corpuscular HGB Conc 28.8 GM/DL (32-36); Mean Corpuscular Volume 94.2 FL (87-102); Mean Platelet Volume 12.6 FL (9.6-12.0); Monocytes % 10.4 % (1.7-12.7); Neutrophils % 78.8 % (38.7-73.9); Platelet Count 185 T/CUMM (130-400); Red Blood Count 2.95 MC/CUMM (3.8-5.5); Red Cell Distribution Width 18.3 % (9.3-17.3); White Blood Count 15.7 T/CUMM (4-12)
[2020-07-21 03:16] LABS: Calcium 8.4 MG/DL (8.5-10.1); Osmolality,Calculated 296.5 MOS/KG (273-304); Potassium 3.8 MMOL/L (3.5-5.1)
[2020-07-21 03:31] LABS: Hypochromasia 1+; Platelet Estimate Normal
[2020-07-21 03:46] LABS: ABG Base Excess 10.9 MMOL/L (-2.5-2.5); ABG HCO3 34.7 MMOL/L (20-26); ABG Oxygen Saturation 99.9 % (95-100); ABG PCO2 45.9 MM HG (35-48); ABG PH 7.497 (7.35-7.45); ABG TCO2 32.7 MMOL/L (23-27)
[2020-07-21] MEDS: DEXMEDETOMIDINE 200 MCG in SODIUM CHLORIDE 0.9% 48 ML IV PRN (07:50)
[2020-07-21] MEDS: PANTOPRAZOLE 40 MG VIAL IV SCH (09:01)
[2020-07-21] MEDS: INSULIN GLARGINE 100 UNIT/ML SUBCUT SCH (09:08)
[2020-07-21] MEDS: FUROSEMIDE 40 MG/4 ML VIAL IV SCH ×2 (09:08→20:59)
[2020-07-21] MEDS: ENOXAPARIN 40 MG/0.4 ML SYRINGE SUBCUT SCH (09:08)
[2020-07-21] MEDS: MUPIROCIN 2% OINT 22 GM TUBE TOP SCH ×2 (09:10→20:58)
[2020-07-21 10:25] LABS: ABG Base Excess 9.4 MMOL/L (-2.5-2.5); ABG HCO3 33.2 MMOL/L (20-26); ABG Oxygen Saturation 98.7 % (95-100); ABG PCO2 59.2 MM HG (35-48); ABG PH 7.393 (7.35-7.45); ABG TCO2 33.4 MMOL/L (23-27); Allen Test Positive; Pt O2 Delivery Device Ventilator
[2020-07-21] MEDS ORDERED: VANCOMYCIN INJ 2,000 MG in SODIUM CHLORIDE 0.9% 500 ML IV SCH (15:00)
[2020-07-21 15:01] LABS: ABG Base Excess 9.7 MMOL/L (-2.5-2.5); ABG HCO3 33.5 MMOL/L (20-26); ABG Oxygen Saturation 99.8 % (95-100); ABG PCO2 64.3 MM HG (35-48); ABG PH 7.369 (7.35-7.45); ABG TCO2 34.2 MMOL/L (23-27); Allen Test Positive; Pt O2 Delivery Device BIPAP
[2020-07-21] MEDS: AMITRIPTYLINE 25 MG TABLET PO SCH (20:59)
[2020-07-21 21:25] LABS: ABG Base Excess 9.4 MMOL/L (-2.5-2.5); ABG HCO3 33.2 MMOL/L (20-26); ABG Oxygen Saturation 98.3 % (95-100); ABG PCO2 61.2 MM HG (35-48); ABG PH 7.383 (7.35-7.45); ABG TCO2 33.4 MMOL/L (23-27)
[2020-07-22] MEDS: INSULIN LISPRO 100 UNIT/ML SUBCUT SCH ×6 (00:38→20:40)
[2020-07-22] MEDS: PIPERACILLIN/TAZOBACTAM 3,375 MG in SODIUM CHLORIDE 0.9% 100 ML IV SCH ×3 (01:50→17:13)
[2020-07-22 03:44] LABS: ABG Base Excess 9.9 MMOL/L (-2.5-2.5); ABG HCO3 33.6 MMOL/L (20-26); ABG Oxygen Saturation 98.5 % (95-100); ABG PCO2 59.8 MM HG (35-48); ABG PH 7.396 (7.35-7.45); ABG TCO2 33.6 MMOL/L (23-27)
[2020-07-22 06:22] LABS: Calcium 9.1 MG/DL (8.5-10.1); Osmolality,Calculated 292.4 MOS/KG (273-304); Potassium 3.7 MMOL/L (3.5-5.1)
[2020-07-22 06:23] LABS: Basophils % 0.2 % (0.0-0.8); Eosinophils # 0.9 10*3/uL (0.0-0.87); Hematocrit 31.6 VOL% (35.7-47.0); Hemoglobin 9.2 GM/DL (12.0-16.0); Immature Granulocytes % 0.5 %; Immature Granulocytes Absolute 0.08 #; Lymphocytes # 0.8 10*3/uL (1.4-4.0); Lymphocytes % 5.3 % (21.3-54.2); Mean Corpuscular HGB Conc 29.1 GM/DL (32-36); Mean Corpuscular Volume 91.3 FL (87-102); Mean Platelet Volume 13.1 FL (9.6-12.0); Monocytes % 11.6 % (1.7-12.7); Neutrophils % 76.4 % (38.7-73.9); Platelet Count 218 T/CUMM (130-400); Red Blood Count 3.46 MC/CUMM (3.8-5.5); Red Cell Distribution Width 17.9 % (9.3-17.3)
[2020-07-22 06:30] LABS: Hypochromasia 1+; Microcytosis 1+; Platelet Estimate Adequate
[2020-07-22] MEDS: INSULIN GLARGINE 100 UNIT/ML SUBCUT SCH ×2 (08:50→10:27)
[2020-07-22] MEDS: PANTOPRAZOLE 40 MG VIAL IV SCH (08:51)
[2020-07-22] MEDS: FUROSEMIDE 40 MG/4 ML VIAL IV SCH ×2 (08:51→21:30)
[2020-07-22] MEDS: ENOXAPARIN 40 MG/0.4 ML SYRINGE SUBCUT SCH (08:51)
[2020-07-22] MEDS: MUPIROCIN 2% OINT 22 GM TUBE TOP SCH ×2 (10:26→22:08)
[2020-07-22] MEDS: acetaZOLAMIDE 250 MG TABLET PO SCH (12:55)
[2020-07-22] MEDS: AMITRIPTYLINE 25 MG TABLET PO SCH (22:16)
[2020-07-23] MEDS: INSULIN LISPRO 100 UNIT/ML SUBCUT SCH ×2 (01:17→03:15)
[2020-07-23] MEDS: PIPERACILLIN/TAZOBACTAM 3,375 MG in SODIUM CHLORIDE 0.9% 100 ML IV SCH ×2 (01:30→08:50)
[2020-07-23 03:30] LABS: Basophils % 0.3 % (0.0-0.8); Eosinophils # 0.6 10*3/uL (0.0-0.87); Eosinophils % 5.6 % (0.00-10.9); Hematocrit 29.1 VOL% (35.7-47.0); Hemoglobin 8.4 GM/DL (12.0-16.0); Immature Granulocytes % 0.6 %; Immature Granulocytes Absolute 0.06 #; Lymphocytes # 0.9 10*3/uL (1.4-4.0); Lymphocytes % 9.5 % (21.3-54.2); Mean Corpuscular HGB Conc 28.9 GM/DL (32-36); Mean Corpuscular Volume 91.2 FL (87-102); Mean Platelet Volume 12.9 FL (9.6-12.0); Monocytes % 16.1 % (1.7-12.7); Neutrophils % 67.9 % (38.7-73.9); Platelet Count 212 T/CUMM (130-400); Red Blood Count 3.19 MC/CUMM (3.8-5.5); Red Cell Distribution Width 17.7 % (9.3-17.3); White Blood Count 9.8 T/CUMM (4-12)
[2020-07-23 03:45] LABS: Albumin 2.2 G/DL (3.4-5.0); Bilirubin,Direct 0.87 MG/DL (0.0-0.20); Bilirubin,Indirect 0.4 MG/DL (0.0-1.0); Bilirubin,Total 1.3 MG/DL (0.2-1.0); Calcium 8.6 MG/DL (8.5-10.1); Potassium 3.4 MMOL/L (3.5-5.1); Total Protein 7.2 G/DL (6.4-8.2)
[2020-07-23 03:52] LABS: Osmolality,Calculated 297.3 MOS/KG (273-304)
[2020-07-23 04:28] LABS: Allen Test Positive
[2020-07-23 04:29] LABS: ABG Base Excess 9.3 MMOL/L (-2.5-2.5); ABG Oxygen Saturation 98.4 % (95-100); ABG PCO2 60.7 MM HG (35-48); ABG PH 7.381 (7.35-7.45); ABG TCO2 33.6 MMOL/L (23-27)
[2020-07-23 05:20] LABS: Band Neutrophils 1 % (0-10); Eosinophils 11 % (0-10); Lymphocytes 5 % (20-55); Metamyelocytes 3 %; Segmented Neutrophils 75 % (50-85); Total Cells Counted 100
[2020-07-23 05:56] LABS: Microcytosis Slight
[2020-07-23 05:57] LABS: Platelet Estimate Adequate
[2020-07-23] MEDS: FUROSEMIDE 40 MG/4 ML VIAL IV SCH ×2 (08:49→20:25)
[2020-07-23] MEDS: PANTOPRAZOLE 40 MG VIAL IV SCH (08:49)
[2020-07-23] MEDS: RIVAROXABAN 15 MG TABLET PO SCH (08:49)
[2020-07-23] MEDS: acetaZOLAMIDE 250 MG TABLET PO SCH (08:49)
[2020-07-23] MEDS: MUPIROCIN 2% OINT 22 GM TUBE TOP SCH ×2 (08:49→20:39)
[2020-07-23] MEDS: INSULIN GLARGINE 100 UNIT/ML SUBCUT SCH (08:49)
[2020-07-23] MEDS: INSULIN LISPRO 100 UNIT/ML SUBCUT PRN ×2 (11:53→16:05)
[2020-07-23] MEDS: AMITRIPTYLINE 25 MG TABLET PO SCH (20:39)
[2020-07-24 05:00] LABS: Basophils % 0.3 % (0.0-0.8); Eosinophils # 0.2 10*3/uL (0.0-0.87); Eosinophils % 2.1 % (0.00-10.9); Hematocrit 28.9 VOL% (35.7-47.0); Hemoglobin 8.6 GM/DL (12.0-16.0); Immature Granulocytes % 0.5 %; Immature Granulocytes Absolute 0.05 #; Lymphocytes # 0.7 10*3/uL (1.4-4.0); Lymphocytes % 6.7 % (21.3-54.2); Mean Corpuscular HGB Conc 29.8 GM/DL (32-36); Mean Corpuscular Volume 89.8 FL (87-102); Mean Platelet Volume 12.3 FL (9.6-12.0); Neutrophils % 71.4 % (38.7-73.9); Platelet Count 206 T/CUMM (130-400); Red Blood Count 3.22 MC/CUMM (3.8-5.5); Red Cell Distribution Width 17.5 % (9.3-17.3); White Blood Count 10.3 T/CUMM (4-12)
[2020-07-24 05:06] LABS: Calcium 8.8 MG/DL (8.5-10.1); Osmolality,Calculated 295.7 MOS/KG (273-304); Potassium 3.2 MMOL/L (3.5-5.1)
[2020-07-24 05:37] LABS: Albumin 2.5 G/DL (3.4-5.0); Bilirubin,Direct 1.1 MG/DL (0.0-0.20); Bilirubin,Indirect 0.5 MG/DL (0.0-1.0); Bilirubin,Total 1.6 MG/DL (0.2-1.0); Total Protein 7.1 G/DL (6.4-8.2)
[2020-07-24] MEDS: acetaZOLAMIDE 250 MG TABLET PO SCH (08:27)
[2020-07-24] MEDS: MUPIROCIN 2% OINT 22 GM TUBE TOP SCH ×2 (08:27→21:58)
[2020-07-24] MEDS: FUROSEMIDE 40 MG/4 ML VIAL IV SCH ×2 (08:27→21:54)
[2020-07-24] MEDS: RIVAROXABAN 15 MG TABLET PO SCH (08:27)
[2020-07-24] MEDS: PANTOPRAZOLE 40 MG VIAL IV SCH (08:27)
[2020-07-24] MEDS: INSULIN LISPRO 100 UNIT/ML SUBCUT PRN ×4 (08:28→21:54)
[2020-07-24 08:34] LABS: Eosinophils 2 % (0-10); Lymphocytes 8 % (20-55); Platelet Estimate Normal; Segmented Neutrophils 74 % (50-85); Total Cells Counted 100
[2020-07-24] MEDS: INSULIN GLARGINE 100 UNIT/ML SUBCUT SCH (12:16)
[2020-07-24] MEDS: POTASSIUM CHLORIDE 20 MEQ/15 ML UDCUP PER TUBE PRN ×3 (12:17→16:12)
[2020-07-24] MEDS: AMITRIPTYLINE 25 MG TABLET PO SCH (21:53)
[2020-07-25 06:05] LABS: Basophils % 0.3 % (0.0-0.8); Eosinophils # 0.2 10*3/uL (0.0-0.87); Eosinophils % 1.9 % (0.00-10.9); Hematocrit 28.1 VOL% (35.7-47.0); Hemoglobin 8.6 GM/DL (12.0-16.0); Immature Granulocytes % 0.7 %; Immature Granulocytes Absolute 0.07 #; Lymphocytes # 0.8 10*3/uL (1.4-4.0); Lymphocytes % 7.8 % (21.3-54.2); Mean Corpuscular HGB Conc 30.6 GM/DL (32-36); Mean Corpuscular Volume 88.4 FL (87-102); Mean Platelet Volume 12.7 FL (9.6-12.0); Monocytes % 13.9 % (1.7-12.7); Neutrophils % 75.4 % (38.7-73.9); Platelet Count 231 T/CUMM (130-400); Red Blood Count 3.18 MC/CUMM (3.8-5.5); Red Cell Distribution Width 17.2 % (9.3-17.3); White Blood Count 9.9 T/CUMM (4-12)
[2020-07-25 06:31] LABS: Calcium 8.8 MG/DL (8.5-10.1); Osmolality,Calculated 289.5 MOS/KG (273-304); Potassium 3.3 MMOL/L (3.5-5.1)
[2020-07-25] MEDS: acetaZOLAMIDE 250 MG TABLET PO SCH (08:45)
[2020-07-25] MEDS: RIVAROXABAN 15 MG TABLET PO SCH (08:45)
[2020-07-25] MEDS: POTASSIUM CHLORIDE 20 MEQ/15 ML UDCUP PER TUBE PRN ×2 (08:46→11:59)
[2020-07-25] MEDS: PANTOPRAZOLE 40 MG VIAL IV SCH (08:46)
[2020-07-25] MEDS: INSULIN GLARGINE 100 UNIT/ML SUBCUT SCH (08:46)
[2020-07-25] MEDS: FUROSEMIDE 40 MG/4 ML VIAL IV SCH ×2 (08:46→20:53)
[2020-07-25] MEDS: INSULIN LISPRO 100 UNIT/ML SUBCUT PRN ×4 (08:53→20:54)
[2020-07-25] MEDS: MUPIROCIN 2% OINT 22 GM TUBE TOP SCH ×2 (09:51→20:54)
[2020-07-25] MEDS: ACETAMINOPHEN 325 MG TABLET PO PRN (16:18)
[2020-07-25] MEDS: AMITRIPTYLINE 25 MG TABLET PO SCH (20:53)
[2020-07-26] MEDS: ACETAMINOPHEN 325 MG TABLET PO PRN ×3 (01:27→18:59)
[2020-07-26] MEDS: PANTOPRAZOLE 40 MG TABLET PO SCH (06:11)
[2020-07-26] MEDS: acetaZOLAMIDE 250 MG TABLET PO SCH (08:23)
[2020-07-26] MEDS: INSULIN LISPRO 100 UNIT/ML SUBCUT SCH ×4 (08:23→20:19)
[2020-07-26] MEDS: RIVAROXABAN 15 MG TABLET PO SCH (08:23)
[2020-07-26] MEDS: INSULIN GLARGINE 100 UNIT/ML SUBCUT SCH (08:24)
[2020-07-26] MEDS: FUROSEMIDE 40 MG/4 ML VIAL IV SCH ×2 (08:24→20:09)
[2020-07-26 14:46] LABS: % Iron Saturation 9.5 % (18-50); Ferritin 146.3 ng/ml (8-252)
[2020-07-26 15:11] LABS: Folate 23.83 NG/ML (5.38-24.0); Vitamin B12 > 2000 PG/ML (211-911)
[2020-07-26] MEDS: AMITRIPTYLINE 25 MG TABLET PO SCH (20:09)
[2020-07-26] MEDS: SIMVASTATIN 20 MG TABLET PO SCH (20:09)
[2020-07-26] MEDS: GABAPENTIN 400 MG CAPSULE PO SCH (21:08)
[2020-07-27] MEDS: PANTOPRAZOLE 40 MG TABLET PO SCH (05:29)
[2020-07-27 06:10] LABS: Risk Ratio 4.08; VLDL CHOLESTEROL 19.6 MG/DL
[2020-07-27] MEDS: INSULIN GLARGINE 100 UNIT/ML SUBCUT SCH (08:12)
[2020-07-27] MEDS: INSULIN LISPRO 100 UNIT/ML SUBCUT SCH ×4 (08:12→21:32)
[2020-07-27] MEDS: ASPIRIN EC 325 MG TABLET PO SCH (08:13)
[2020-07-27] MEDS: FUROSEMIDE 40 MG/4 ML VIAL IV SCH ×2 (08:13→21:31)
[2020-07-27] MEDS: RIVAROXABAN 15 MG TABLET PO SCH (08:13)
[2020-07-27] MEDS: CYANOCOBALAMIN 500 MCG TABLET PO SCH (08:13)
[2020-07-27] MEDS: acetaZOLAMIDE 250 MG TABLET PO SCH (08:13)
[2020-07-27] MEDS: CHOLECALCIFEROL 1,000 UNIT TABLET PO SCH (08:13)
[2020-07-27] MEDS: FOLIC ACID 1 MG TABLET PO SCH (08:14)
[2020-07-27] MEDS: GABAPENTIN 400 MG CAPSULE PO SCH ×2 (08:14→21:31)
[2020-07-27] MEDS ORDERED: PANTOPRAZOLE 40 MG TABLET PO SCH (09:00)
[2020-07-27] MEDS: MOISTURIZING CREAM (EUCERIN) 106 GM JAR TOP PRN (16:39)
[2020-07-27] MEDS: SIMVASTATIN 20 MG TABLET PO SCH (21:31)
[2020-07-27] MEDS: AMITRIPTYLINE 25 MG TABLET PO SCH (21:31)
[2020-07-28] MEDS: ACETAMINOPHEN 325 MG TABLET PO PRN (04:11)
[2020-07-28] MEDS: PANTOPRAZOLE 40 MG TABLET PO SCH (05:33)
[2020-07-28 06:22] LABS: Basophils % 0.5 % (0.0-0.8); Eosinophils # 0.3 10*3/uL (0.0-0.87); Eosinophils % 3.7 % (0.00-10.9); Hematocrit 29.3 VOL% (35.7-47.0); Hemoglobin 8.5 GM/DL (12.0-16.0); Immature Granulocytes % 0.4 %; Immature Granulocytes Absolute 0.03 #; Lymphocytes # 0.8 10*3/uL (1.4-4.0); Lymphocytes % 10.2 % (21.3-54.2); Mean Corpuscular Volume 90.7 FL (87-102); Monocytes % 10.4 % (1.7-12.7); Neutrophils % 74.8 % (38.7-73.9); Platelet Count 254 T/CUMM (130-400); Red Blood Count 3.23 MC/CUMM (3.8-5.5); Red Cell Distribution Width 17.2 % (9.3-17.3); White Blood Count 7.5 T/CUMM (4-12)
[2020-07-28 06:42] LABS: Calcium 8.2 MG/DL (8.5-10.1); Osmolality,Calculated 275.4 MOS/KG (273-304)
[2020-07-28] MEDS: INSULIN LISPRO 100 UNIT/ML SUBCUT SCH ×4 (08:23→21:47)
[2020-07-28] MEDS: INSULIN GLARGINE 100 UNIT/ML SUBCUT SCH (08:23)
[2020-07-28] MEDS: GABAPENTIN 400 MG CAPSULE PO SCH ×2 (08:24→21:47)
[2020-07-28] MEDS: ASPIRIN EC 325 MG TABLET PO SCH (08:24)
[2020-07-28] MEDS: CHOLECALCIFEROL 1,000 UNIT TABLET PO SCH (08:24)
[2020-07-28] MEDS: acetaZOLAMIDE 250 MG TABLET PO SCH (08:24)
[2020-07-28] MEDS: FUROSEMIDE 40 MG/4 ML VIAL IV SCH ×2 (08:24→21:47)
[2020-07-28] MEDS: MOISTURIZING CREAM (EUCERIN) 106 GM JAR TOP PRN (08:24)
[2020-07-28] MEDS: FOLIC ACID 1 MG TABLET PO SCH (08:25)
[2020-07-28] MEDS: CYANOCOBALAMIN 500 MCG TABLET PO SCH (08:25)
[2020-07-28] MEDS: RIVAROXABAN 15 MG TABLET PO SCH (08:25)
[2020-07-28] MEDS: POTASSIUM CHLORIDE 20 MEQ/15 ML UDCUP PER TUBE PRN ×4 (09:10→16:46)
[2020-07-28] MEDS: POTASSIUM CHLORIDE INJ 10 MEQ in SODIUM CHLORIDE 0.9% 1,000 ML IV SCH (17:01)
[2020-07-28] MEDS: AMITRIPTYLINE 25 MG TABLET PO SCH (21:47)
[2020-07-28] MEDS: SIMVASTATIN 20 MG TABLET PO SCH (21:47)
[2020-07-29] MEDS: ACETAMINOPHEN 325 MG TABLET PO PRN (00:03)
[2020-07-29 05:52] LABS: Basophils % 0.6 % (0.0-0.8); Eosinophils # 0.3 10*3/uL (0.0-0.87); Eosinophils % 4.5 % (0.00-10.9); Hematocrit 29.9 VOL% (35.7-47.0); Hemoglobin 8.9 GM/DL (12.0-16.0); Immature Granulocytes % 0.6 %; Immature Granulocytes Absolute 0.04 #; Lymphocytes # 0.8 10*3/uL (1.4-4.0); Lymphocytes % 12.3 % (21.3-54.2); Mean Corpuscular HGB Conc 29.8 GM/DL (32-36); Mean Corpuscular Volume 89.8 FL (87-102); Mean Platelet Volume 12.1 FL (9.6-12.0); Platelet Count 239 T/CUMM (130-400); Red Blood Count 3.33 MC/CUMM (3.8-5.5); Red Cell Distribution Width 17.2 % (9.3-17.3); White Blood Count 6.7 T/CUMM (4-12)
[2020-07-29] MEDS: PANTOPRAZOLE 40 MG TABLET PO SCH (06:05)
[2020-07-29 06:08] LABS: Calcium 8.3 MG/DL (8.5-10.1); Potassium 3.5 MMOL/L (3.5-5.1)
[2020-07-29] MEDS: CYANOCOBALAMIN 500 MCG TABLET PO SCH (09:09)
[2020-07-29] MEDS: ASPIRIN EC 325 MG TABLET PO SCH (09:09)
[2020-07-29] MEDS: CHOLECALCIFEROL 1,000 UNIT TABLET PO SCH (09:09)
[2020-07-29] MEDS: FOLIC ACID 1 MG TABLET PO SCH (09:09)
[2020-07-29] MEDS: FERROUS SULFATE 325 MG TABLET PO SCH (09:09)
[2020-07-29] MEDS: RIVAROXABAN 15 MG TABLET PO SCH (09:09)
[2020-07-29] MEDS: GABAPENTIN 400 MG CAPSULE PO SCH ×2 (09:09→21:29)
[2020-07-29] MEDS: acetaZOLAMIDE 250 MG TABLET PO SCH (09:10)
[2020-07-29] MEDS: FUROSEMIDE 40 MG/4 ML VIAL IV SCH (09:10)
[2020-07-29] MEDS: INSULIN LISPRO 100 UNIT/ML SUBCUT SCH ×4 (09:11→21:29)
[2020-07-29] MEDS: INSULIN GLARGINE 100 UNIT/ML SUBCUT SCH (09:12)
[2020-07-29] MEDS ORDERED: TUBERCULIN SKIN TEST 0.1 ML SYRINGE INTRADERM ONE (11:00)
[2020-07-29] MEDS: POTASSIUM CHLORIDE INJ 10 MEQ in SODIUM CHLORIDE 0.9% 1,000 ML IV SCH (12:08)
[2020-07-29] MEDS: AMITRIPTYLINE 25 MG TABLET PO SCH (21:29)
[2020-07-29] MEDS: SIMVASTATIN 20 MG TABLET PO SCH (21:29)
[2020-07-30] MEDS: MAGNESIUM HYDROXIDE SUSP 30 ML UDCUP PO PRN (00:03)
[2020-07-30] MEDS: ACETAMINOPHEN 325 MG TABLET PO PRN (00:04)
[2020-07-30] MEDS: PANTOPRAZOLE 40 MG TABLET PO SCH (05:47)
[2020-07-30] MEDS: acetaZOLAMIDE 250 MG TABLET PO SCH (08:45)
[2020-07-30] MEDS: RIVAROXABAN 15 MG TABLET PO SCH (08:45)
[2020-07-30] MEDS: FUROSEMIDE 20 MG TABLET PO SCH (08:45)
[2020-07-30] MEDS: CHOLECALCIFEROL 1,000 UNIT TABLET PO SCH (08:45)
[2020-07-30] MEDS: GABAPENTIN 400 MG CAPSULE PO SCH ×2 (08:45→21:18)
[2020-07-30] MEDS: ASPIRIN EC 325 MG TABLET PO SCH (08:45)
[2020-07-30] MEDS: CYANOCOBALAMIN 500 MCG TABLET PO SCH (08:45)
[2020-07-30] MEDS: FOLIC ACID 1 MG TABLET PO SCH (08:46)
[2020-07-30] MEDS: INSULIN GLARGINE 100 UNIT/ML SUBCUT SCH (08:46)
[2020-07-30] MEDS: INSULIN LISPRO 100 UNIT/ML SUBCUT SCH ×4 (08:46→21:18)
[2020-07-30] MEDS: FERROUS SULFATE 325 MG TABLET PO SCH (08:56)
[2020-07-30] MEDS ORDERED: ERGOCALCIFEROL 50,000 UNIT CAPSULE PO SCH (09:00)
[2020-07-30] MEDS: AMITRIPTYLINE 25 MG TABLET PO SCH (21:18)
[2020-07-30] MEDS: SIMVASTATIN 20 MG TABLET PO SCH (21:18)
[2020-07-31] MEDS: MAGNESIUM HYDROXIDE SUSP 30 ML UDCUP PO PRN (06:09)
[2020-07-31] MEDS: PANTOPRAZOLE 40 MG TABLET PO SCH (06:09)
[2020-07-31] MEDS: ASPIRIN EC 325 MG TABLET PO SCH (08:06)
[2020-07-31] MEDS: GABAPENTIN 400 MG CAPSULE PO SCH ×2 (08:06→22:41)
[2020-07-31] MEDS: FOLIC ACID 1 MG TABLET PO SCH (08:07)
[2020-07-31] MEDS: acetaZOLAMIDE 250 MG TABLET PO SCH (08:07)
[2020-07-31] MEDS: INSULIN GLARGINE 100 UNIT/ML SUBCUT SCH (08:07)
[2020-07-31] MEDS: FERROUS SULFATE 325 MG TABLET PO SCH (08:07)
[2020-07-31] MEDS: FUROSEMIDE 20 MG TABLET PO SCH (08:07)
[2020-07-31] MEDS: CHOLECALCIFEROL 1,000 UNIT TABLET PO SCH (08:07)
[2020-07-31] MEDS: CYANOCOBALAMIN 500 MCG TABLET PO SCH (08:07)
[2020-07-31] MEDS: RIVAROXABAN 15 MG TABLET PO SCH (08:07)
[2020-07-31] MEDS: INSULIN LISPRO 100 UNIT/ML SUBCUT SCH ×4 (08:08→22:41)
[2020-07-31] MEDS: ACETAMINOPHEN 325 MG TABLET PO PRN ×2 (13:38→22:42)
[2020-07-31] MEDS: SIMVASTATIN 20 MG TABLET PO SCH (22:42)
[2020-07-31] MEDS: AMITRIPTYLINE 25 MG TABLET PO SCH (22:42)
[2020-08-01] MEDS: PANTOPRAZOLE 40 MG TABLET PO SCH (07:28)
[2020-08-01] MEDS: INSULIN LISPRO 100 UNIT/ML SUBCUT SCH ×2 (08:15→11:43)
[2020-08-01] MEDS: INSULIN GLARGINE 100 UNIT/ML SUBCUT SCH (08:16)
[2020-08-01] MEDS: FERROUS SULFATE 325 MG TABLET PO SCH (08:16)
[2020-08-01] MEDS: CHOLECALCIFEROL 1,000 UNIT TABLET PO SCH (08:17)
[2020-08-01] MEDS: CYANOCOBALAMIN 500 MCG TABLET PO SCH (08:17)
[2020-08-01] MEDS: GABAPENTIN 400 MG CAPSULE PO SCH (08:17)
[2020-08-01] MEDS: acetaZOLAMIDE 250 MG TABLET PO SCH (08:17)
[2020-08-01] MEDS: RIVAROXABAN 15 MG TABLET PO SCH (08:17)
[2020-08-01] MEDS: FUROSEMIDE 20 MG TABLET PO SCH (08:17)
[2020-08-01] MEDS: FOLIC ACID 1 MG TABLET PO SCH (08:17)
[2020-08-01] MEDS: ASPIRIN EC 325 MG TABLET PO SCH (08:17)
[2020-08-01] MEDS: ACETAMINOPHEN 325 MG TABLET PO PRN (08:21)
[2020-08-01 11:46] VITALS: BP 106/52
== END 2020-08-01 13:24 | DRG 207 ==
LOC: SUATTDRO 10:51 → N.ICU 10:51 → N.5E 07-24 17:07
PROVIDERS: ADMIT Internal Medicine; ATTEND Student in an Organized Health Care Education/Training Program